=== PATIENT | male | born 1975 | race Caucasian/White ===

== ENCOUNTER 2022-09-25 07:00 | Outpatient (CLI) | payer MEDICAID ==
[2022-09-25 11:43] LABS: BASOPHILS % (AUTO) 0.6 %; EOSINOPHILS # (AUTO) 0.1 10^3/uL (0.0-0.7); EOSINOPHILS % (AUTO) 1.8 %; HCT - HEMATOCRIT 44.5 % (42.0-52.0); HGB - HEMOGLOBIN 14.8 g/dL (14.0-18.0); LYMPHOCYTES # (AUTO) 1.4 10^3/uL (1.5-3.5); LYMPHOCYTES % (AUTO) 21.9 %; MEAN CORPUSCULAR HGB CONC 33.3 g/dL (32.0-36.0); MEAN CORPUSCULAR VOLUME 96.3 fL (80.0-94.0); MEAN PLATELET VOLUME 11.6 fL (7.4-11.4); MONOCYTES # (AUTO) 0.5 10^3/uL (0.0-1.0); MONOCYTES % (AUTO) 7.6 %; NEUTROPHILS # (AUTO) 4.4 10^3/uL (1.5-6.6); NEUTROPHILS % (AUTO) 67.8 %; PLT - PLATELET COUNT 178 10^3/uL (130-450); RED BLOOD COUNT 4.62 10^6/uL (4.70-6.10); RED CELL DISTRIBUTION WIDTH 12.7 % (12.0-15.0); WHITE BLOOD COUNT 6.5 x10^3/uL (4.8-10.8)
[2022-09-25 12:24] LABS: CALCIUM 9.5 mg/dL (8.5-10.3); CREATININE 0.9 mg/dL (0.6-1.2); POTASSIUM 4.8 mmol/L (3.5-5.0)
[2022-09-25 12:33] LABS: ESTIMATED AVERAGE GLUCOSE 258 mg/dL (70-100); HEMOGLOBIN A1c% 10.6 % (4.27-6.07)
--- NOTE | 2022-09-25 14:00 | XRAY Report ---
PROCEDURE: Toe(s) LT INDICATIONS: DIABETIC ULCER TECHNIQUE: 3 views of the first toe(s) acquired. COMPARISON: None FINDINGS: Bones: No fractures or dislocations. No suspicious bony lesions. Soft tissues: No suspicious soft tissue densities. Distal first toe soft tissue swelling IMPRESSION: Soft tissue swelling without fracture or lytic lesion. No radiopaque foreign body Reviewed by: Jeramie Darden MD on 09/25/2022 12:59 PM AK Approved by: Jeramie Darden MD on 09/25/2022 12:59 PM AKST Station ID: [id number]
== END 2022-09-25 23:59 | disposition home or self-care (01) ==
LOC: DI.N 07:00
PROVIDERS: ATTEND Physician Assistant
DX: E11.621 Type 2 diabetes mellitus with foot ulcer (principal); R22.42 Localized swelling, mass and lump, left lower limb
CPT/HCPCS: 36415; 73660; 80048; 83036; 85025; 85651

== ENCOUNTER 2023-01-21 16:42 | Outpatient (CLI) | payer MEDICAID ==
--- NOTE | 2023-01-22 11:52 | XRAY Report ---
PROCEDURE: Knee 4 View BILAT INDICATIONS: BILAT KNEE PAIN TECHNIQUE: 3 views of each knee(s) were acquired. COMPARISON: None. FINDINGS: Bones: No fractures or dislocations. No suspicious bony lesions. Moderate tricompartmental knee krystian nt degeneration bilaterally, slightly more pronounced in right knee. There is moderate joint space na rrowing with weightbearing in the medial femorotibial compartments bilaterally. Soft tissues: Trace effusions bilaterally. No suspicious soft tissue calcifications or masses. IMPRESSION: Moderate osteoarthritis bilaterally. Reviewed by: Brittney Desouza MD on 01/22/2023 11:51 AM PDT Approved by: Brittney Desouza MD on 01/22/2023 11:51 AM PDT Station ID: [id number]
== END 2023-01-21 16:43 | disposition home or self-care (01) ==
LOC: DI.WOS 16:42
PROVIDERS: ATTEND Orthopaedic Surgery
DX: M17.0 Bilateral primary osteoarthritis of knee (principal)

== ENCOUNTER 2023-02-23 19:17 | Outpatient (CLI) | payer OTHER, MEDICAID | END 2023-02-23 19:18 | disposition critical access hospital (66) | LOC: EMS 19:17 | DX: M54.9 Dorsalgia, unspecified (principal); S30.1XXA Contusion of abdominal wall, initial encounter; S80.02XA Contusion of left knee, initial encounter; S80.01XA Contusion of right knee, initial encounter; H55.00 Unspecified nystagmus; V43.52XA Car driver injured in collision with other type car in traffic accident, initial encounter; Y92.413 State road as the place of occurrence of the external cause | CPT/HCPCS: A0425; A0427 ==

== ENCOUNTER 2023-02-23 19:26 | Emergency (ER) | payer OTHER, MEDICAID ==
[2023-02-23] MEDS ORDERED: HYDROmorphone 1 MG/ML CARPUJECT IVP STA (19:40)
[2023-02-23 19:42] LABS: BASOPHILS # (AUTO) 0.1 10^3/uL (0.0-0.1); BASOPHILS % (AUTO) 0.5 %; EOSINOPHILS # (AUTO) 0.2 10^3/uL (0.0-0.7); EOSINOPHILS % (AUTO) 1.6 %; HCT - HEMATOCRIT 42.3 % (42.0-52.0); HGB - HEMOGLOBIN 14.1 g/dL (14.0-18.0); LYMPHOCYTES # (AUTO) 2.4 10^3/uL (1.5-3.5); LYMPHOCYTES % (AUTO) 23.9 %; MEAN CORPUSCULAR HEMOGLOBIN 32.2 pg (27.0-31.0); MEAN CORPUSCULAR HGB CONC 33.3 g/dL (32.0-36.0); MEAN CORPUSCULAR VOLUME 96.6 fL (80.0-94.0); MEAN PLATELET VOLUME 11.5 fL (7.4-11.4); MONOCYTES # (AUTO) 0.7 10^3/uL (0.0-1.0); NEUTROPHILS # (AUTO) 6.7 10^3/uL (1.5-6.6); NEUTROPHILS % (AUTO) 65.8 %; PLT - PLATELET COUNT 177 10^3/uL (130-450); RED BLOOD COUNT 4.38 10^6/uL (4.70-6.10); RED CELL DISTRIBUTION WIDTH 12.1 % (12.0-15.0); WHITE BLOOD COUNT 10.2 x10^3/uL (4.8-10.8)
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
[2023-02-23 19:51] LABS: INR 0.9 (0.8-1.2); PT - PROTHROMBIN TIME 10.3 secs (9.9-12.6)
[2023-02-23 19:52] LABS: ALBUMIN 3.6 g/dL (3.2-5.5); ALBUMIN/GLOBULIN RATIO 0.9 (1.0-2.2); BILIRUBIN,TOTAL 0.7 mg/dL (0.2-1.0); CALCIUM 8.8 mg/dL (8.5-10.3); ETOH - ETHANOL 262.1 mg/dL; POTASSIUM 4.7 mmol/L (3.5-5.0); TOTAL PROTEIN 7.8 g/dL (6.7-8.2)
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
[2023-02-23] MEDS ORDERED: iohexoL-300 100 ML VIAL ONE (20:04)
[2023-02-23 20:16] VITALS: BP 131/85
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
[2023-02-23] MEDS ORDERED: iohexoL-300 100 ML VIAL IVP ONE (23:53)
== END 2023-02-23 20:23 | disposition short-term general hospital (02) ==
LOC: EDUNIT# → ED 19:26
DX: S33.4XXA Traumatic rupture of symphysis pubis, initial encounter (principal); V49.9XXA Car occupant (driver) (passenger) injured in unspecified traffic accident, initial encounter; E11.9 Type 2 diabetes mellitus without complications; F10.920 Alcohol use, unspecified with intoxication, uncomplicated; Z20.822 Contact with and (suspected) exposure to COVID-19
CPT/HCPCS: 36415; 70450; 71045; 71260; 72125; 72170; 74177; 80053; 80320; 83690; 85025; 85610; 85730; 87635; 99285; 99291; Q9967; 86850; 86900; 86901